=== PATIENT | male | born 1970 | race Caucasian/White ===

== ENCOUNTER 2019-03-24 10:54 | Emergency (ER) | payer OTHER ==
[~2019-03-24] VITALS: Ht 177.8 cm; Wt 102.1 kg
[~2019-03-24 10:54] MED LIST: LEVO500T59 PO; OXYC1TAB22 PO
--- NOTE | 2019-03-24 11:39 | PHYS DOC ---
Past History Past Medical History: Hypertension, Other Additional Past Medical Histor: Cardiac Past Surgical History: Pacemaker, Other Additional Past Surgical Histo: Cardiac Smoking: Non-smoker Additional Smoking Information: Dips Alcohol Use: None Drug Use: None Adult General Chief Complaint Chief Complaint: BLOODY STOOL HPI HPI Patient is a 48-year-old male presents with maroon stool. Patient is currently on a Lovenox bridge from Coumadin after undergoing colonoscopy with biopsy 3 days ago. He continues the Lovenox, 100 mg twice a day. He denies any significant abdominal pain. Denies any weakness. Denies any new bruising. Denies any chest pain or palpitations. Nothing makes the symptoms better or worse.[] Review of Systems Review of Systems Constitutional: Denies fever or chills [] Eyes: Denies change in visual acuity, redness, or eye pain [] HENT: Denies nasal congestion or sore throat [] Respiratory: Denies cough or shortness of breath [] Cardiovascular: No chest pain or palpitations[] GI: Denies abdominal pain, nausea, vomiting,, see history of present illness[] : Denies dysuria or hematuria [] Musculoskeletal: Denies back pain or joint pain [] Integument: Denies rash or skin lesions [] Neurologic: Denies headache, focal weakness or sensory changes [] Endocrine: Denies polyuria or polydipsia [] All other systems were reviewed and found to be within normal limits, except as documented in this note. Allergies Allergies Allergies Coded Allergies Type Severity Reaction Last Updated Verified No Known Drug Allergies 09/02/15 No Physical Exam Physical Exam Constitutional: Well developed, well nourished, no acute distress, non-toxic appearance. [] HENT: Normocephalic, atraumatic, bilateral external ears normal, oropharynx moist, no oral exudates, nose normal. [] Eyes: PERRLA, EOMI, conjunctiva normal, no discharge. [] Neck: Normal range of motion, no tenderness, supple, no stridor. [] Cardiovascular:Heart rate regular rhythm, no murmur [] Lungs & Thorax: Bilateral breath sounds clear to auscultation [] Abdomen: Bowel sounds normal, soft, no tenderness, no masses, no pulsatile masses. [] Skin: Warm, dry, no erythema, no rash. [] Back: No tenderness, no CVA tenderness. [] Extremities: No tenderness, no cyanosis, no clubbing, ROM intact, no edema. [] Neurologic: Alert and oriented X 3, normal motor function, normal sensory function, no focal deficits noted. [] Psychologic: Affect normal, judgement normal, mood normal. [] Current Patient Data Vital Signs Vital Signs Date Time Temp Pulse Resp B/P (MAP) Pulse Ox O2 Delivery O2 Flow Rate FiO2 03/24/19 11:07 97.9 74 16 97 Room Air EKG EKG [] Radiology/Procedures Radiology/Procedures Examination: CT of the abdomen pelvis with IV contrast HISTORY: History of GI bleed post colonoscopy COMPARISON: None available TECHNIQUE: Axial CT of abdomen is performed with IV contrast. Coronal and sagittal reformats are performed. Exposure: One or more of the following individualized dose reduction techniques were utilized for this examination: 1. Automated exposure control 2. Adjustment of the mA and/or kV according to patient size 3. Use of iterative reconstruction technique FINDINGS: The bibasilar lungs are clear. No evidence of free air identified in the abdomen. There is mild decreased attenuation noted in the liver likely hepatic steatosis. There is ill-defined hypodensity identified in the right lobe of the liver measuring 2.3 cm. The spleen, adrenals grossly appears unremarkable. The stomach is mildly distended. The visualized pancreas grossly appears unremarkable. The small bowel is nondilated. Appendix is normal. There is mild thickened appearance of the wall of the colon throughout probably due to nondistention less likely colitis. Urinary bladder is mildly distended. Correlation is limited due to streak artifact from bilateral hip prosthesis. The bilateral kidneys enhance symmetrically. The caliber of the aorta grossly appears unremarkable. No evidence of lytic bony destructive lesion. IMPRESSION: 1. Mild thickened appearance of the wall of the colon probably due to nondistention or minimal colitis. 2. Mild hepatic steatosis. There is a 2.3 cm hypodensity identified in the liver, difficult to characterize, could be focal fat or liver lesion is not excluded. Recommend follow-up MRI for further evaluation.[] Course & Med Decision Making Course & Med Decision Making Pertinent Labs and Imaging studies reviewed. (See chart for details) ED course: Patient arrived, was placed in bed, and tolerated exam well. He was transported to and from radiology with any complications. Patient had a dark maroon colored stool with what appeared to be blood mixed all throughout. Due to this, consultation was made with the hospitalist service, Dr. Bull, who graciously accepted the patient for transfer to [facility]. Findings and plan were discussed with the patient who voiced understanding. All questions were answered. He was transferred in improved condition. Medical decision making: Patient who is anticoagulated with GI bleeding post biopsy. There was also noted to be an ulcer according to the GI doctor in the transverse colon. Patient is currently hemodynamically stable but is being transferred to a higher level of care.[] Dragon Disclaimer Dragon Disclaimer This electronic medical record was generated, in whole or in part, using a voice recognition dictation system. Departure Departure: Impression: Primary Impression: GI bleed Disposition: 05 TRANSFER OTHER Condition: IMPROVED Referrals: JHONATAN SHAW (PCP) HERIBERTO DAY DO Mar 24, 2019 11:39
[2019-03-24] MEDS ORDERED: CONTRAST GIVEN MC PRN (11:45)
[2019-03-24] MEDS ORDERED: IOHEXOL 300 MG/ML 75 ML VIAL. IV ONE (11:45)
[2019-03-24 11:46] LABS: BASO % 1 % (0-3); EOS # 0.1 x10^3/uL (0.0-0.7); EOS % 2 % (0-3); HEMOGLOBIN 12.5 g/dL (13.0-17.5); LYMPH % 23 % (24-48); MEAN CORPUSCULAR HEMOGLOBIN 31 pg (25-35); MEAN CORPUSCULAR HGB CONC 34 g/dL (31-37); MEAN CORPUSCULAR VOLUME 90 fL (79-100); MONO # 0.4 x10^3/uL (0.0-1.1); MONO % 10 % (0-9); NEUT # 2.9 x10^3uL (1.8-7.7); NEUT % 64 % (31-73); PLATELET COUNT 201 x10^3/uL (140-400); RED BLOOD COUNT 4.11 x10^6/uL (4.30-5.70); RED CELL DISTRIBUTION WIDTH 13.1 % (11.5-14.5); WHITE BLOOD COUNT 4.5 x10^3/uL (4.0-11.0)
[2019-03-24 11:49] LABS: CALCIUM 8.2 mg/dL (8.5-10.1); CREATININE 0.8 mg/dL (0.7-1.3); GFR 102.3; POTASSIUM 3.9 mmol/L (3.5-5.1)
[2019-03-24 11:55] LABS: ALBUMIN 3.7 g/dL (3.4-5.0); ALBUMIN/GLOBULIN RATIO 1.1 (1.0-1.7); TOTAL BILIRUBIN 0.6 mg/dL (0.2-1.0)
--- NOTE | 2019-03-24 12:11 | RAD ---
Examination: CT of the abdomen pelvis with IV contrast HISTORY: History of GI bleed post colonoscopy COMPARISON: None available TECHNIQUE: Axial CT of abdomen is performed with IV contrast. Coronal and sagittal reformats are performed. Exposure: One or more of the following individualized dose reduction techniques were utilized for this examination: 1. Automated exposure control 2. Adjustment of the mA and/or kV according to patient size 3. Use of iterative reconstruction technique FINDINGS: The bibasilar lungs are clear. No evidence of free air identified in the abdomen. There is mild decreased attenuation noted in the liver likely hepatic steatosis. There is ill-defined hypodensity identified in the right lobe of the liver measuring 2.3 cm. The spleen, adrenals grossly appears unremarkable. The stomach is mildly distended. The visualized pancreas grossly appears unremarkable. The small bowel is nondilated. Appendix is normal. There is mild thickened appearance of the wall of the colon throughout probably due to nondistention less likely colitis. Urinary bladder is mildly distended. Correlation is limited due to streak artifact from bilateral hip prosthesis. The bilateral kidneys enhance symmetrically. The caliber of the aorta grossly appears unremarkable. No evidence of lytic bony destructive lesion. IMPRESSION: 1. Mild thickened appearance of the wall of the colon probably due to nondistention or minimal colitis. 2. Mild hepatic steatosis. There is a 2.3 cm hypodensity identified in the liver, difficult to characterize, could be focal fat or liver lesion is not excluded. Recommend follow-up MRI for further evaluation. Electronically signed by: Julian Murrell MD (03/24/2019 12:09 PM) [id number]
[2019-03-24 13:13] LABS: BILIRUBIN,URINE NEG (NEG); CLARITY,URINE CLEAR; COLOR,URINE YELLOW; GLUCOSE,URINE NEG (NEG); NITRITE,URINE NEG (NEG); UROBILINOGEN,URINE 0.2 mg/dL (0.2 mg/dL)
[2019-03-24 13:14] LABS: BACTERIA,URINE 0 /HPF (0-FEW); RBC,URINE 0 /HPF (0-2); SQUAMOUS EPITHELIAL CELL,UR OCC /LPF; WBC,URINE 0 /HPF (0-4)
[2019-03-24 13:32] LABS: FECAL OB PT POSITIVE (NEG)
[2019-03-24 14:17] VITALS: BP 120/70
== END 2019-03-24 14:15 | disposition short-term general hospital (02) ==
LOC: ER 10:54
DX: K92.2 Gastrointestinal hemorrhage, unspecified (principal); I10 Essential (primary) hypertension; F17.200 Nicotine dependence, unspecified, uncomplicated; Z95.0 Presence of cardiac pacemaker
CPT/HCPCS: 36415; 74177; 80053; 81001; 82274; 83690; 85025; 85610; 85730; 99285; Q9967